=== PATIENT | male | born 1955 | race Hispanic/Latino ===

== ENCOUNTER → 2019-12-04 | Outpatient (CLI) | payer OTHER | END | disposition home or self-care (01) | LOC: OIH 10:18 | PROVIDERS: ATTEND Internal Medicine | DX: J45.909 Unspecified asthma, uncomplicated (principal); R06.00 Dyspnea, unspecified | CPT/HCPCS: 71046 ==

== ENCOUNTER 2021-06-27 21:21 | Inpatient (IN) | payer OTHER ==
[~2021-06-27] VITALS: Ht 175.3 cm; Wt 92.4 kg
[2021-06-27 21:42] VITALS: BP 156/100
[2021-06-27] MEDS ORDERED: ACETAMINOPHEN WITH CODEINE 1 TAB TAB PO ONE (22:00)
[2021-06-27] MEDS ORDERED: ALBUTEROL INHALER 90MCG/INH IH PRN (22:00)
[2021-06-27 22:11] LABS: BASOPHILS % (AUTO) 0.1 % (0.0-5.0); HEMATOCRIT 44.9 % (36-48); LYMPHOCYTES % (AUTO) 9.8 % (21.0-51.0); MEAN CORPUSCULAR HEMOGLOBIN 30.2 pg (27.0-33.0); MEAN CORPUSCULAR VOLUME 86.3 fL (79-99); MONOCYTES % (AUTO) 7.1 % (3.0-13.0); NEUTROPHILS % (AUTO) 82.6 % (40.0-77.0); PLATELET COUNT (AUTO) 173 K/uL (130-400); RED CELL DISTRIBUTION WIDTH 13.4 % (11.0-15.5); WHITE BLOOD COUNT (AUTO) 6.9 K/uL (4.8-10.8)
[2021-06-27] MEDS: 0.9%NACL 1000ML 1,000 ML IV SCH (22:22)
[2021-06-27 22:23] LABS: CREATININE 1.7 mg/dL (0.5-1.5); POTASSIUM 3.9 mmol/L (3.5-5.1)
[2021-06-27 22:27] LABS: ALBUMIN 3.1 g/dL (3.5-5.0); BILIRUBIN,TOTAL 0.9 mg/dL (0.2-1.0); TOTAL PROTEIN, SERUM 8.1 g/dL (6.0-8.3)
[2021-06-27 22:34] LABS: B-TYPE NATRIURETIC PEPTIDE 18 pg/mL (0-100)
[2021-06-27 22:41] LABS: CRP QUANTITATIVE 197.4 mg/L (0.00-9.0)
[2021-06-28] VITALS (8 sets, daily range): BP systolic 119–149; BP diastolic 73–96
[2021-06-28] MEDS ORDERED: IPRATROPIUM/ALBUTEROL SULFATE 3 ML SOLUTION IH SCH ×2 (00:30→06:00)
[2021-06-28] MEDS ORDERED: CEFTRIAXONE 1G VIAL IVP ONE (00:30)
[2021-06-28] MEDS ORDERED: AZITHROMYCIN 500MG VIAL IVPB ONE (00:30)
[2021-06-28] MEDS ORDERED: DEXAMETHASONE 4 MG TAB PO SCH ×2 (00:30→09:00)
[2021-06-28] MEDS ORDERED: 0.9% NACL 250ML 250 ML IV ONE (00:46)
[2021-06-28] MEDS ORDERED: AZITHROMYCIN 500MG+NS 250ML 250 ML IV ONE (01:34)
[2021-06-28] MEDS ORDERED: CEFTRIAXONE 1G VIAL ONE (01:35)
[2021-06-28] MEDS: ENOXAPARIN SODIUM 40 MG/0.4 ML SYRINGE SQ SCH ×2 (01:50→09:14)
[2021-06-28] MEDS ORDERED: GLUCAGON 1MG KIT 1 MG ML IM PRN (02:30)
[2021-06-28] MEDS ORDERED: DEXTROSE 50%-WATER 50 ML DISP.SYRIN IV PRN (02:30)
[2021-06-28] MEDS ORDERED: IPRATROPIUM/ALBUTEROL SULFATE 3 ML SOLUTION IH PRN (02:30)
[2021-06-28] MEDS: 0.9%NACL 1000ML 1,000 ML IV SCH ×6 (07:00→21:18)
[2021-06-28] MEDS: INSULIN R PO SS1 SQ SCH ×4 (07:30→21:18)
[2021-06-28] MEDS ORDERED: PHARMACY COMMUNICATION MISC SCH (08:00)
[2021-06-28 08:43] LABS: HEMATOCRIT 41.8 % (36-48); LYMPHOCYTES % (AUTO) 9.6 % (21.0-51.0); MEAN CORPUSCULAR HGB CONC 34.4 g/dL (32.0-36.0); MEAN CORPUSCULAR VOLUME 87.1 fL (79-99); MONOCYTES % (AUTO) 5.3 % (3.0-13.0); NEUTROPHILS % (AUTO) 84.9 % (40.0-77.0); PLATELET COUNT (AUTO) 177 K/uL (130-400); RED CELL DISTRIBUTION WIDTH 13.7 % (11.0-15.5); WHITE BLOOD COUNT (AUTO) 4.2 K/uL (4.8-10.8)
[2021-06-28 08:48] LABS: CREATININE 1.4 mg/dL (0.5-1.5)
[2021-06-28 08:53] LABS: ALBUMIN 2.6 g/dL (3.5-5.0); BILIRUBIN,TOTAL 0.7 mg/dL (0.2-1.0); TOTAL PROTEIN, SERUM 7.1 g/dL (6.0-8.3)
[2021-06-28] MEDS: FAMOTIDINE 20MG TAB PO SCH (09:13)
[2021-06-28] MEDS ORDERED: SOLU-MEDROL 40MG VIAL IVP SCH (13:00)
[2021-06-28] MEDS: HEPARIN 5,000 UNIT VIAL SQ SCH (13:35)
[2021-06-28] MEDS ORDERED: REMDESIVIR (EUA) 520 200 MG in 0.9% NACL 250ML 250 ML IV ONE (14:00)
[2021-06-28] MEDS ORDERED: COMPOUND IV REFRIGERATED 1 EACH IVSOLN MISC PRN (14:00)
[2021-06-28 14:01] LABS: APPEARANCE,URINE Clear (CLEAR); BILIRUBIN,URINE Negative (NEGATIVE); COLOR,URINE Yellow (YELLOW); GLUCOSE, URINE (UA) TRACE mg/dL (NEGATIVE); KETONES,URINE Negative (NEGATIVE); LEUKOCYTE ESTERASE ,URINE Negative (NEGATIVE); NITRATE,URINE Negative (NEGATIVE); OCCULT BLOOD,URINE Negative (NEGATIVE); PH,URINE 5.5 (5.0-8.0); PROTEIN,URINE POS 2+ mg/dL (NEGATIVE); UROBILINOGEN,URINE 0.2 mg/dL (0.2-1.0)
[2021-06-28 14:10] LABS: BACTERIA,URINE Few /HPF (None Seen); MUCUS,URINE Few LPF (None Seen); SQUAMOUS EPITHELIAL CELL,UR Moderate /HPF (0-2)
[2021-06-28] MEDS: SOLU-MEDROL 125MG VIAL IVP SCH ×2 (16:25→21:18)
[2021-06-28] MEDS ORDERED: ALBUTEROL INHALER 90MCG/INH IH PRN (23:30)
[2021-06-29] VITALS (10 sets, daily range): BP systolic 112–151; BP diastolic 58–89
[2021-06-29] MEDS: HEPARIN 5,000 UNIT VIAL SQ SCH ×2 (00:45→12:30)
[2021-06-29] MEDS: 0.9%NACL 1000ML 1,000 ML IV SCH ×5 (02:00→22:00)
[2021-06-29] MEDS: AZITHROMYCIN 500MG+NS 250ML 250 ML IV SCH (05:31)
[2021-06-29] MEDS: CEFTRIAXONE 1G VIAL IVP SCH (05:32)
[2021-06-29] MEDS: REMDESIVIR LABS MISC SCH (06:00)
[2021-06-29] MEDS: SOLU-MEDROL 125MG VIAL IVP SCH ×2 (07:00→15:00)
[2021-06-29 07:21] LABS: HEMATOCRIT 43.3 % (36-48); MEAN CORPUSCULAR HEMOGLOBIN 29.6 pg (27.0-33.0); MEAN CORPUSCULAR HGB CONC 34.2 g/dL (32.0-36.0); MEAN CORPUSCULAR VOLUME 86.6 fL (79-99); RED CELL DISTRIBUTION WIDTH 13.8 % (11.0-15.5); WHITE BLOOD COUNT (AUTO) 8.1 K/uL (4.8-10.8)
[2021-06-29] MEDS: INSULIN R PO SS1 SQ SCH ×4 (07:30→22:33)
[2021-06-29 07:31] LABS: CREATININE 1.2 mg/dL (0.5-1.5); CRP QUANTITATIVE 114.3 mg/L (0.00-9.0); POTASSIUM 4.1 mmol/L (3.5-5.1)
[2021-06-29 07:46] LABS: HEMOGLOBIN A1C 6.7 % (4.0-6.0)
[2021-06-29] MEDS: FAMOTIDINE 20MG TAB PO SCH (10:04)
[2021-06-29 13:48] LABS: ALBUMIN 2.7 g/dL (3.5-5.0); BILIRUBIN,DIRECT 0.2 mg/dL (0.0-0.3); BILIRUBIN,TOTAL 0.7 mg/dL (0.2-1.0); TOTAL PROTEIN, SERUM 7.3 g/dL (6.0-8.3)
[2021-06-29] MEDS: REMDESIVIR (EUA) 520 100 MG in 0.9% NACL 250ML 250 ML IV SCH (14:00)
[2021-06-30 00:10] VITALS: BP 146/86
[2021-06-30] MEDS: HEPARIN 5,000 UNIT VIAL SQ SCH ×3 (00:32→23:47)
[2021-06-30] MEDS: SOLU-MEDROL 125MG VIAL IVP SCH ×4 (00:32→23:10)
[2021-06-30 01:29] VITALS: BP 147/81
[2021-06-30 02:00] VITALS: BP 159/86
[2021-06-30] MEDS: 0.9%NACL 1000ML 1,000 ML IV SCH ×6 (02:00→22:00)
[2021-06-30] MEDS: CEFTRIAXONE 1G VIAL IVP SCH (04:26)
[2021-06-30] MEDS: AZITHROMYCIN 500MG+NS 250ML 250 ML IV SCH (04:26)
[2021-06-30] MEDS: REMDESIVIR LABS MISC SCH (06:00)
[2021-06-30] MEDS: INSULIN R PO SS1 SQ SCH ×4 (06:41→20:55)
[2021-06-30 06:53] LABS: ALBUMIN 2.5 g/dL (3.5-5.0); BILIRUBIN,TOTAL 0.6 mg/dL (0.2-1.0); CREATININE 1.2 mg/dL (0.5-1.5); CRP QUANTITATIVE 49.8 mg/L (0.00-9.0); POTASSIUM 4.2 mmol/L (3.5-5.1); TOTAL PROTEIN, SERUM 6.6 g/dL (6.0-8.3)
[2021-06-30 08:03] VITALS: BP 147/90
[2021-06-30] MEDS ORDERED: ACETAMINOPHEN 325 MG TAB PO PRN (10:00)
[2021-06-30] MEDS: FAMOTIDINE 20MG TAB PO SCH (10:03)
[2021-06-30] MEDS: REMDESIVIR (EUA) 520 100 MG in 0.9% NACL 250ML 250 ML IV SCH (15:26)
[2021-06-30 16:17] VITALS: BP 140/82
[2021-06-30 20:00] VITALS: BP 162/94
[2021-07-01] VITALS (7 sets, daily range): BP systolic 132–152; BP diastolic 78–91
[2021-07-01] MEDS: 0.9%NACL 1000ML 1,000 ML IV SCH ×2 (02:00→06:00)
[2021-07-01 04:16] LABS: HEMATOCRIT 39.6 % (36-48); MEAN CORPUSCULAR HEMOGLOBIN 29.5 pg (27.0-33.0); MEAN CORPUSCULAR HGB CONC 34.6 g/dL (32.0-36.0); MEAN CORPUSCULAR VOLUME 85.2 fL (79-99); RED BLOOD CELL COUNT(AUTO) 4.65 MIL/uL (4.00-5.50); RED CELL DISTRIBUTION WIDTH 13.5 % (11.0-15.5); WHITE BLOOD COUNT (AUTO) 10.9 K/uL (4.8-10.8)
[2021-07-01 04:23] LABS: CREATININE 1.1 mg/dL (0.5-1.5); CRP QUANTITATIVE 29.4 mg/L (0.00-9.0); POTASSIUM 3.8 mmol/L (3.5-5.1)
[2021-07-01] MEDS: REMDESIVIR LABS MISC SCH (06:00)
[2021-07-01] MEDS: SOLU-MEDROL 125MG VIAL IVP SCH ×3 (06:39→22:43)
[2021-07-01] MEDS: INSULIN R PO SS1 SQ SCH ×4 (06:41→21:04)
[2021-07-01 10:41] LABS: ALBUMIN 2.6 g/dL (3.5-5.0); BILIRUBIN,DIRECT 0.1 mg/dL (0.0-0.3); BILIRUBIN,TOTAL 0.5 mg/dL (0.2-1.0); TOTAL PROTEIN, SERUM 6.3 g/dL (6.0-8.3)
[2021-07-01] MEDS: FAMOTIDINE 20MG TAB PO SCH (12:16)
[2021-07-01] MEDS: HEPARIN 5,000 UNIT VIAL SQ SCH (12:18)
[2021-07-01] MEDS: REMDESIVIR (EUA) 520 100 MG in 0.9% NACL 250ML 250 ML IV SCH (14:00)
[2021-07-01] MEDS: INSULIN GLARGINE 100 UNITS/ML 10 ML VIAL SQ SCH (21:05)
[2021-07-02] MEDS: HEPARIN 5,000 UNIT VIAL SQ SCH ×2 (00:23→11:43)
[2021-07-02 04:04] VITALS: BP 151/86
[2021-07-02] MEDS: REMDESIVIR LABS MISC SCH (05:08)
[2021-07-02 05:12] LABS: ALBUMIN 2.4 g/dL (3.5-5.0); BILIRUBIN,TOTAL 0.7 mg/dL (0.2-1.0); CRP QUANTITATIVE 33.9 mg/L (0.00-9.0); POTASSIUM 3.6 mmol/L (3.5-5.1); TOTAL PROTEIN, SERUM 6.3 g/dL (6.0-8.3)
[2021-07-02] MEDS: INSULIN GLARGINE 100 UNITS/ML 10 ML VIAL SQ SCH ×2 (06:10→20:29)
[2021-07-02] MEDS: INSULIN R PO SS1 SQ SCH ×4 (06:10→20:28)
[2021-07-02] MEDS: SOLU-MEDROL 125MG VIAL IVP SCH ×3 (06:24→20:27)
[2021-07-02 08:00] VITALS: BP 148/86
[2021-07-02] MEDS: FAMOTIDINE 20MG TAB PO SCH (08:20)
[2021-07-02] MEDS: DIAZEPAM 5 MG TABLET PO PRN (11:42)
[2021-07-02] MEDS: REMDESIVIR (EUA) 520 100 MG in 0.9% NACL 250ML 250 ML IV SCH (13:24)
[2021-07-02 16:00] VITALS: BP 145/87
[2021-07-02 20:14] VITALS: BP 137/83
[2021-07-02 23:40] VITALS: BP 155/89
[2021-07-03] MEDS: HEPARIN 5,000 UNIT VIAL SQ SCH ×2 (00:23→11:36)
[2021-07-03 03:27] VITALS: BP 152/99
[2021-07-03 04:00] LABS: ABG BASE EXCESS 2.6 mmol/L (-2.0-3.0); ABG HCO3 25.1 mmol/L (21.0-28.0); ABG OXYGEN SATURATION 86.6 % (95.0-99.0); ABG PCO2 33 mmHg (32-45)
[2021-07-03 05:33] LABS: CREATININE 1.1 mg/dL (0.5-1.5); CRP QUANTITATIVE 44.9 mg/L (0.00-9.0); POTASSIUM 4.2 mmol/L (3.5-5.1)
[2021-07-03] MEDS: INSULIN GLARGINE 100 UNITS/ML 10 ML VIAL SQ SCH ×2 (06:16→20:15)
[2021-07-03] MEDS: INSULIN R PO SS1 SQ SCH ×4 (06:17→20:14)
[2021-07-03 08:00] VITALS: BP 158/93
[2021-07-03] MEDS: FAMOTIDINE 20MG TAB PO SCH (08:33)
[2021-07-03] MEDS: SOLU-MEDROL 125MG VIAL IVP SCH ×2 (08:33→20:11)
[2021-07-03 12:04] VITALS: BP 131/87
[2021-07-03 16:37] VITALS: BP 152/92
[2021-07-03 20:00] VITALS: BP 148/93
[2021-07-03 23:52] VITALS: BP 143/95
[2021-07-04] MEDS: HEPARIN 5,000 UNIT VIAL SQ SCH ×2 (00:21→12:30)
[2021-07-04 03:58] VITALS: BP 159/99
[2021-07-04] MEDS: INSULIN GLARGINE 100 UNITS/ML 10 ML VIAL SQ SCH ×2 (06:05→21:11)
[2021-07-04] MEDS: INSULIN R PO SS1 SQ SCH ×4 (06:06→21:12)
[2021-07-04 07:29] VITALS: BP 157/95
[2021-07-04] MEDS: FAMOTIDINE 20MG TAB PO SCH (10:25)
[2021-07-04] MEDS: SOLU-MEDROL 125MG VIAL IVP SCH ×2 (10:25→20:15)
[2021-07-04] MEDS: DIAZEPAM 5 MG TABLET PO PRN (10:52)
[2021-07-04 11:59] VITALS: BP 137/85
[2021-07-04] MEDS ORDERED: IOHEXOL-350 75 ML VIAL IV ONE (13:37)
[2021-07-04 15:30] VITALS: BP 138/94
[2021-07-04 20:00] VITALS: BP 136/86
[2021-07-04] MEDS ORDERED: APIXABAN 5 MG TABLET PO ONE (20:12)
[2021-07-04] MEDS: APIXABAN 5 MG TABLET PO SCH (20:16)
[2021-07-05] VITALS: BP 134/86
[2021-07-05 04:00] VITALS: BP 126/90
[2021-07-05 05:18] LABS: HEMATOCRIT 44.4 % (36-48); MEAN CORPUSCULAR HEMOGLOBIN 29.5 pg (27.0-33.0); MEAN CORPUSCULAR HGB CONC 33.8 g/dL (32.0-36.0); MEAN CORPUSCULAR VOLUME 87.2 fL (79-99); RED BLOOD CELL COUNT(AUTO) 5.09 MIL/uL (4.00-5.50)
[2021-07-05 05:40] LABS: CREATININE 1.2 mg/dL (0.5-1.5); POTASSIUM 4.9 mmol/L (3.5-5.1)
[2021-07-05] MEDS: INSULIN R PO SS1 SQ SCH ×4 (06:31→21:21)
[2021-07-05] MEDS: INSULIN GLARGINE 100 UNITS/ML 10 ML VIAL SQ SCH ×2 (06:31→21:21)
[2021-07-05 08:00] VITALS: BP 128/88
[2021-07-05] MEDS: APIXABAN 5 MG TABLET PO SCH ×2 (09:00→19:51)
[2021-07-05] MEDS: FAMOTIDINE 20MG TAB PO SCH (11:00)
[2021-07-05] MEDS: SOLU-MEDROL 125MG VIAL IVP SCH ×3 (11:00→22:30)
[2021-07-05 12:11] VITALS: BP 114/68
[2021-07-05] MEDS ORDERED: APIXABAN 5 MG TABLET PO SCH (14:00)
[2021-07-05] MEDS ORDERED: [UNRECOGNIZED DRUG - REMARK] MISC STA (14:28)
[2021-07-05] MEDS ORDERED: FENOFIBRATE NANOCRYSTALLIZED 145 MG TAB PO SCH (14:30)
[2021-07-05] MEDS ORDERED: [UNRECOGNIZED DRUG - REMARK] MISC SCH (14:30)
[2021-07-05 16:09] VITALS: BP 124/80
[2021-07-05] MEDS ORDERED: APIXABAN 5 MG TABLET PO ONE (19:45)
[2021-07-05 20:00] VITALS: BP 133/84
[2021-07-06] VITALS: BP 136/86
[2021-07-06 04:00] VITALS: BP 135/86
[2021-07-06] MEDS: SOLU-MEDROL 125MG VIAL IVP SCH ×3 (06:08→22:40)
[2021-07-06] MEDS: INSULIN GLARGINE 100 UNITS/ML 10 ML VIAL SQ SCH ×2 (06:23→20:41)
[2021-07-06] MEDS: INSULIN R PO SS1 SQ SCH ×4 (06:25→20:41)
[2021-07-06 07:19] LABS: CREATININE 1.2 mg/dL (0.5-1.5); POTASSIUM 4.5 mmol/L (3.5-5.1)
[2021-07-06 08:23] VITALS: BP 139/80
[2021-07-06] MEDS ORDERED: [UNRECOGNIZED DRUG - REMARK] MISC SCH (09:00)
[2021-07-06] MEDS: APIXABAN 5 MG TABLET PO SCH ×2 (09:00→20:24)
[2021-07-06 11:32] VITALS: BP 132/78
[2021-07-06] MEDS: FENOFIBRATE NANOCRYSTALLIZED 145 MG TAB PO SCH (11:32)
[2021-07-06] MEDS: FAMOTIDINE 20MG TAB PO SCH (11:32)
[2021-07-06 16:58] VITALS: BP 161/95
[2021-07-06] MEDS ORDERED: APIXABAN 5 MG TABLET PO ONE (19:18)
[2021-07-06 19:24] VITALS: BP 126/81
[2021-07-07] VITALS (7 sets, daily range): BP systolic 125–152; BP diastolic 75–94
[2021-07-07 04:35] LABS: HEMATOCRIT 39.3 % (36-48); MEAN CORPUSCULAR HEMOGLOBIN 29.4 pg (27.0-33.0); MEAN CORPUSCULAR HGB CONC 34.6 g/dL (32.0-36.0); MEAN CORPUSCULAR VOLUME 84.9 fL (79-99); RED BLOOD CELL COUNT(AUTO) 4.63 MIL/uL (4.00-5.50); RED CELL DISTRIBUTION WIDTH 13.7 % (11.0-15.5); WHITE BLOOD COUNT (AUTO) 14.2 K/uL (4.8-10.8)
[2021-07-07 04:49] LABS: CREATININE 1.2 mg/dL (0.5-1.5); CRP QUANTITATIVE 14.3 mg/L (0.00-9.0); POTASSIUM 4.6 mmol/L (3.5-5.1)
[2021-07-07] MEDS: SOLU-MEDROL 125MG VIAL IVP SCH ×3 (05:21→21:05)
[2021-07-07] MEDS: INSULIN R PO SS1 SQ SCH ×4 (06:06→19:37)
[2021-07-07] MEDS: INSULIN GLARGINE 100 UNITS/ML 10 ML VIAL SQ SCH ×2 (06:18→19:38)
[2021-07-07] MEDS ORDERED: [UNRECOGNIZED DRUG - REMARK] MISC SCH (09:00)
[2021-07-07] MEDS ORDERED: APIXABAN 5 MG TABLET PO SCH (10:30)
[2021-07-07] MEDS: FAMOTIDINE 20MG TAB PO SCH (10:42)
[2021-07-07] MEDS: FENOFIBRATE NANOCRYSTALLIZED 145 MG TAB PO SCH (10:42)
[2021-07-07] MEDS ORDERED: [UNRECOGNIZED DRUG - REMARK] MISC STA (14:09)
[2021-07-07] MEDS: BARICITINIB (EUA) 2 MG TABLET PO SCH (15:02)
[2021-07-07 16:10] LABS: ALBUMIN 2.4 g/dL (3.5-5.0); BILIRUBIN,DIRECT 0.2 mg/dL (0.0-0.3); BILIRUBIN,TOTAL 0.6 mg/dL (0.2-1.0); TOTAL PROTEIN, SERUM 6.1 g/dL (6.0-8.3)
[2021-07-07] MEDS ORDERED: REMDESIVIR (EUA) 520 100 MG in 0.9% NACL 250ML 250 ML IV ONE (16:30)
[2021-07-07] MEDS ORDERED: COMPOUND IV REFRIGERATED 1 EACH IVSOLN MISC PRN (16:30)
[2021-07-07] MEDS: APIXABAN 5 MG TABLET PO SCH (19:34)
[2021-07-07] MEDS: REMDESIVIR LABS MISC SCH (20:14)
[2021-07-08 03:50] VITALS: BP 118/73
[2021-07-08] MEDS ORDERED: SOLU-MEDROL 125MG VIAL ONE (04:10)
[2021-07-08 04:50] LABS: HEMATOCRIT 39.2 % (36-48); MEAN CORPUSCULAR HEMOGLOBIN 29.5 pg (27.0-33.0); MEAN CORPUSCULAR HGB CONC 33.7 g/dL (32.0-36.0); MEAN CORPUSCULAR VOLUME 87.5 fL (79-99); RED BLOOD CELL COUNT(AUTO) 4.48 MIL/uL (4.00-5.50); WHITE BLOOD COUNT (AUTO) 11.7 K/uL (4.8-10.8)
[2021-07-08 05:17] LABS: ALBUMIN 2.1 g/dL (3.5-5.0); BILIRUBIN,DIRECT 0.2 mg/dL (0.0-0.3); BILIRUBIN,TOTAL 0.5 mg/dL (0.2-1.0); CREATININE 1.2 mg/dL (0.5-1.5); POTASSIUM 4.8 mmol/L (3.5-5.1); TOTAL PROTEIN, SERUM 5.3 g/dL (6.0-8.3)
[2021-07-08] MEDS: INSULIN R PO SS1 SQ SCH ×4 (05:32→20:40)
[2021-07-08] MEDS: SOLU-MEDROL 125MG VIAL IVP SCH ×3 (05:32→21:27)
[2021-07-08] MEDS: INSULIN GLARGINE 100 UNITS/ML 10 ML VIAL SQ SCH ×2 (06:21→20:41)
[2021-07-08] MEDS: FAMOTIDINE 20MG TAB PO SCH (08:14)
[2021-07-08] MEDS: FENOFIBRATE NANOCRYSTALLIZED 145 MG TAB PO SCH (08:14)
[2021-07-08] MEDS: APIXABAN 5 MG TABLET PO SCH ×2 (08:15→20:19)
[2021-07-08 08:24] VITALS: BP 143/89
[2021-07-08 11:00] VITALS: BP 138/75
[2021-07-08] MEDS: BARICITINIB (EUA) 2 MG TABLET PO SCH (11:31)
[2021-07-08] MEDS: REMDESIVIR (EUA) 520 100 MG in 0.9% NACL 250ML 250 ML IV SCH (15:22)
[2021-07-08 16:05] VITALS: BP 135/80
[2021-07-08 20:00] VITALS: BP_SYST 101; BP_SYST 138; BP_DIAS 46; BP_DIAS 86
[2021-07-09] VITALS: BP 144/92
[2021-07-09] MEDS: REMDESIVIR LABS MISC SCH (01:12)
[2021-07-09 04:00] VITALS: BP 120/75
[2021-07-09] MEDS: SOLU-MEDROL 125MG VIAL IVP SCH ×3 (05:35→22:25)
[2021-07-09] MEDS: INSULIN R PO SS1 SQ SCH ×4 (05:35→21:30)
[2021-07-09 06:31] LABS: ALBUMIN 2.1 g/dL (3.5-5.0); BILIRUBIN,DIRECT 0.2 mg/dL (0.0-0.3); BILIRUBIN,TOTAL 0.7 mg/dL (0.2-1.0); CREATININE 1.1 mg/dL (0.5-1.5); POTASSIUM 4.5 mmol/L (3.5-5.1); TOTAL PROTEIN, SERUM 5.2 g/dL (6.0-8.3)
[2021-07-09] MEDS: INSULIN GLARGINE 100 UNITS/ML 10 ML VIAL SQ SCH ×2 (06:31→21:31)
[2021-07-09] MEDS: FAMOTIDINE 20MG TAB PO SCH (07:57)
[2021-07-09] MEDS: FENOFIBRATE NANOCRYSTALLIZED 145 MG TAB PO SCH (07:57)
[2021-07-09] MEDS: APIXABAN 5 MG TABLET PO SCH ×2 (07:57→21:22)
[2021-07-09 08:00] VITALS: BP 131/78
[2021-07-09] MEDS: BARICITINIB (EUA) 2 MG TABLET PO SCH (09:56)
[2021-07-09 12:00] VITALS: BP 140/78
[2021-07-09] MEDS: REMDESIVIR (EUA) 520 100 MG in 0.9% NACL 250ML 250 ML IV SCH (15:21)
[2021-07-09 16:00] VITALS: BP 142/86
[2021-07-09 20:00] VITALS: BP 134/85
[2021-07-10] VITALS: BP 110/65
[2021-07-10 04:00] VITALS: BP 130/75
[2021-07-10 05:44] LABS: HEMATOCRIT 38.9 % (36-48); MEAN CORPUSCULAR HEMOGLOBIN 29.3 pg (27.0-33.0); MEAN CORPUSCULAR HGB CONC 33.9 g/dL (32.0-36.0); MEAN CORPUSCULAR VOLUME 86.3 fL (79-99); RED BLOOD CELL COUNT(AUTO) 4.51 MIL/uL (4.00-5.50); WHITE BLOOD COUNT (AUTO) 11.5 K/uL (4.8-10.8)
[2021-07-10] MEDS: INSULIN R PO SS1 SQ SCH ×4 (06:02→20:39)
[2021-07-10 06:08] LABS: ALBUMIN 2.2 g/dL (3.5-5.0); BILIRUBIN,DIRECT 0.2 mg/dL (0.0-0.3); BILIRUBIN,TOTAL 0.7 mg/dL (0.2-1.0); CREATININE 1.1 mg/dL (0.5-1.5); POTASSIUM 4.8 mmol/L (3.5-5.1); TOTAL PROTEIN, SERUM 5.3 g/dL (6.0-8.3)
[2021-07-10] MEDS: SOLU-MEDROL 125MG VIAL IVP SCH ×3 (06:43→20:35)
[2021-07-10] MEDS: INSULIN GLARGINE 100 UNITS/ML 10 ML VIAL SQ SCH ×2 (06:47→20:37)
[2021-07-10 08:00] VITALS: BP 129/91
[2021-07-10] MEDS: FENOFIBRATE NANOCRYSTALLIZED 145 MG TAB PO SCH (08:15)
[2021-07-10] MEDS: BARICITINIB (EUA) 2 MG TABLET PO SCH (08:15)
[2021-07-10] MEDS: FAMOTIDINE 20MG TAB PO SCH (08:16)
[2021-07-10] MEDS: APIXABAN 5 MG TABLET PO SCH ×2 (08:16→20:35)
[2021-07-10 12:00] VITALS: BP 133/86
[2021-07-10] MEDS: REMDESIVIR (EUA) 520 100 MG in 0.9% NACL 250ML 250 ML IV SCH (13:53)
[2021-07-10 16:00] VITALS: BP 142/83
[2021-07-10 20:00] VITALS: BP 136/76
[2021-07-11] VITALS (7 sets, daily range): BP systolic 104–143; BP diastolic 67–81
[2021-07-11] MEDS: SOLU-MEDROL 125MG VIAL IVP SCH ×2 (05:59→14:52)
[2021-07-11] MEDS: INSULIN R PO SS1 SQ SCH ×4 (07:23→20:35)
[2021-07-11] MEDS: FAMOTIDINE 20MG TAB PO SCH (10:01)
[2021-07-11] MEDS: FENOFIBRATE NANOCRYSTALLIZED 145 MG TAB PO SCH (10:01)
[2021-07-11] MEDS: BARICITINIB (EUA) 2 MG TABLET PO SCH (10:02)
[2021-07-11] MEDS: APIXABAN 5 MG TABLET PO SCH ×2 (10:02→20:32)
[2021-07-11] MEDS: INSULIN GLARGINE 100 UNITS/ML 10 ML VIAL SQ SCH ×2 (10:12→20:34)
[2021-07-11 14:00] LABS: ALBUMIN 2.4 g/dL (3.5-5.0); BILIRUBIN,DIRECT 0.2 mg/dL (0.0-0.3); BILIRUBIN,TOTAL 0.6 mg/dL (0.2-1.0); TOTAL PROTEIN, SERUM 5.4 g/dL (6.0-8.3)
[2021-07-11] MEDS: REMDESIVIR (EUA) 520 100 MG in 0.9% NACL 250ML 250 ML IV SCH (14:52)
[2021-07-11] MEDS ORDERED: DEXA6TAB7 PO (17:59)
[2021-07-11] MEDS ORDERED: APIX5TAB PO (17:59)
[2021-07-11] MEDS: SOLU-MEDROL 40MG VIAL IVP SCH (19:11)
[2021-07-12 04:00] VITALS: BP 118/70
[2021-07-12] MEDS: SOLU-MEDROL 40MG VIAL IVP SCH ×3 (04:02→17:41)
[2021-07-12] MEDS: INSULIN GLARGINE 100 UNITS/ML 10 ML VIAL SQ SCH (06:25)
[2021-07-12 07:18] VITALS: BP 115/75
[2021-07-12] MEDS: INSULIN R PO SS1 SQ SCH ×3 (07:30→16:09)
[2021-07-12 11:12] VITALS: BP 125/75
[2021-07-12] MEDS: FENOFIBRATE NANOCRYSTALLIZED 145 MG TAB PO SCH (11:41)
[2021-07-12] MEDS: FAMOTIDINE 20MG TAB PO SCH (11:41)
[2021-07-12] MEDS: BARICITINIB (EUA) 2 MG TABLET PO SCH (11:41)
[2021-07-12] MEDS: APIXABAN 5 MG TABLET PO SCH (11:42)
[2021-07-12 15:51] VITALS: BP 120/75
[2021-07-12 20:00] VITALS: BP 129/74
== END 2021-07-12 21:45 | disposition home or self-care (01) | DRG 177 ==
LOC: EDH 21:21 → EDHIP 23:30 → 4AH 06-30 02:00
PROVIDERS: ADMIT Internal Medicine; ATTEND Internal Medicine
PROC: XW033E5 Introduction of Remdesivir Anti-infective into Peripheral Vein, Percutaneous Approach, New Technology Group 5 (ICD-10-PCS; principal; 2021-06-28)
PROC: 5A09357 Assistance with Respiratory Ventilation, Less than 24 Consecutive Hours, Continuous Positive Airway Pressure (ICD-10-PCS; 2021-06-29)
PROC: 5A0935A Assistance with Respiratory Ventilation, Less than 24 Consecutive Hours, High Flow/Velocity Cannula (ICD-10-PCS; 2021-07-03)
PROC: 5A0935A Assistance with Respiratory Ventilation, Less than 24 Consecutive Hours, High Flow/Velocity Cannula (ICD-10-PCS; 2021-07-04)
PROC: 5A0935A Assistance with Respiratory Ventilation, Less than 24 Consecutive Hours, High Flow/Velocity Cannula (ICD-10-PCS; 2021-07-05)
PROC: 5A0935A Assistance with Respiratory Ventilation, Less than 24 Consecutive Hours, High Flow/Velocity Cannula (ICD-10-PCS; 2021-07-06)
PROC: XW0DXM6 Introduction of Baricitinib into Mouth and Pharynx, External Approach, New Technology Group 6 (ICD-10-PCS; 2021-07-07)
PROC: 5A0935A Assistance with Respiratory Ventilation, Less than 24 Consecutive Hours, High Flow/Velocity Cannula (ICD-10-PCS; 2021-07-07)
PROC: 5A0935A Assistance with Respiratory Ventilation, Less than 24 Consecutive Hours, High Flow/Velocity Cannula (ICD-10-PCS; 2021-07-09)
PROC: 5A0935A Assistance with Respiratory Ventilation, Less than 24 Consecutive Hours, High Flow/Velocity Cannula (ICD-10-PCS; 2021-07-10)
PROC: 5A0935A Assistance with Respiratory Ventilation, Less than 24 Consecutive Hours, High Flow/Velocity Cannula (ICD-10-PCS; 2021-07-11)
DX: U07.1 COVID-19 (principal); J96.01 Acute respiratory failure with hypoxia; J12.82 Pneumonia due to coronavirus disease 2019; I26.99 Other pulmonary embolism without acute cor pulmonale; N17.9 Acute kidney failure, unspecified; J44.0 Chronic obstructive pulmonary disease with (acute) lower respiratory infection; Z99.11 Dependence on respirator [ventilator] status; N18.9 Chronic kidney disease, unspecified; K21.9 Gastro-esophageal reflux disease without esophagitis; E66.9 Obesity, unspecified; Z68.30 Body mass index [BMI] 30.0-30.9, adult
CPT/HCPCS: 36415; 36600; 71045; 71250; 71275; 80048; 80053; 80076; 81001; 82248; 82803; 82948; 83036; 83605; 83880; 84145; 84484; 85025; 85027; 85378; 86140; 87040; 87426; 87635; 87804; 87880; 93005; 93970; 94760; A4606; G0378; J0456; J0696; J1644; J1650; J1815; J2920; J2930; J7030; J7050; J8540; Q9967

== ENCOUNTER 2022-09-29 19:00 | Emergency (ER) | payer OTHER ==
[~2022-09-29] VITALS: Ht 175.3 cm; Wt 95.3 kg
[~2022-09-29 19:00] MED LIST: APIX5TAB PO; DEXA6TAB7 PO
[2022-09-29] MEDS ORDERED: BACITRACIN 28.4 GM OINT TP STA (20:06)
[2022-09-29] MEDS ORDERED: DICL35CA3 PO (20:15)
[2022-09-29] MEDS ORDERED: BACI28.3 TP (20:15)
[2022-09-29] MEDS ORDERED: BACITRACIN 1 EACH PACKET TP ONE (20:25)
[2022-09-29 20:30] VITALS: BP 133/82
[2022-09-29] MEDS ORDERED: KETOROLAC 30MG VIAL (30MG/ML) IM ONE (20:30)
== END 2022-09-29 20:34 | disposition home or self-care (01) ==
LOC: EDH 19:00 → EDSEX 19:00 → EDH 20:34
DX: T20.20XA Burn of second degree of head, face, and neck, unspecified site, initial encounter (principal); X08.8XXA Exposure to other specified smoke, fire and flames, initial encounter; Y93.89 Activity, other specified; Y92.89 Other specified places as the place of occurrence of the external cause; Y99.8 Other external cause status
CPT/HCPCS: 99283; 16000; 96372; 93005; J1885

== ENCOUNTER → 2024-08-07 | Outpatient (CLI) | payer MEDICARE ==
[~2024-08-07] MED LIST changes: +BACI28.3 TP; +DICL35CA3 PO
== END | disposition home or self-care (01) ==
LOC: RAH 10:05
PROVIDERS: ATTEND Clinical Nurse Specialist Family Health
DX: S60.012A Contusion of left thumb without damage to nail, initial encounter (principal); M19.042 Primary osteoarthritis, left hand; M17.0 Bilateral primary osteoarthritis of knee; M79.645 Pain in left finger(s); M25.561 Pain in right knee; M25.562 Pain in left knee; X58.XXXA Exposure to other specified factors, initial encounter; Y93.89 Activity, other specified; Y92.89 Other specified places as the place of occurrence of the external cause; Y99.8 Other external cause status
CPT/HCPCS: 73140; 73565; 73560